=== PATIENT | male | born 1995 | race Asian ===

== ENCOUNTER 2021-07-24 05:43 | Emergency (ER) | payer OTHER ==
[~2021-07-24] VITALS: Ht 162.6 cm; Wt 61.2 kg
== END 2021-07-24 06:23 | disposition home or self-care (01) ==
LOC: ER 05:53
DX: R10.32 Left lower quadrant pain (principal); S39.011A Strain of muscle, fascia and tendon of abdomen, initial encounter; Z87.442 Personal history of urinary calculi; F17.210 Nicotine dependence, cigarettes, uncomplicated
CPT/HCPCS: 99282

== ENCOUNTER 2021-07-31 09:36 | Emergency (ER) | payer OTHER ==
[~2021-07-31] VITALS: Ht 162.6 cm; Wt 61.2 kg
[2021-07-31 10:42] LABS: CLARITY,URINE CLEAR (CLEAR); COLOR,URINE YELLOW (YELLOW); KETONES,URINE NEGATIVE (NEGATIVE); LEUKOCYTE ESTERASE ,URINE NEGATIVE (NEGATIVE); NITRITE,URINE NEGATIVE (NEGATIVE); PROTEIN,URINE DIPSTICK NEGATIVE (NEGATIVE); URINE UROBILINOGEN 0.2 mg/dL (0.2 - 1)
[2021-07-31 10:54] LABS: BACTERIA,URINE FEW /HPF; EPITHELIAL CELLS,URINE FEW /LPF; WBC,URINE (MAN) 0-5 /HPF (0-5)
== END 2021-07-31 11:36 | disposition home or self-care (01) ==
LOC: ER 10:01
DX: R10.32 Left lower quadrant pain (principal); S39.011A Strain of muscle, fascia and tendon of abdomen, initial encounter; Y93.A9 Activity, other involving cardiorespiratory exercise; Z87.442 Personal history of urinary calculi
CPT/HCPCS: 81001; 87086; 99282